=== PATIENT | male | born 1970 | race Caucasian/White ===

== ENCOUNTER 2018-08-01 12:34 | Emergency (ER) | payer SELFPAY ==
[~2018-08-01] VITALS: Ht 172.7 cm; Wt 90.7 kg
[2018-08-01] MEDS ORDERED: NKM (12:42)
[2018-08-01 12:45] VITALS: BP 114/80
[2018-08-01] MEDS ORDERED: Ketorolac 30mg Inj IV ONE (13:15)
[2018-08-01 14:00] VITALS: BP 103/65
[2018-08-01 14:10] LABS: BASOPHILS % (AUTO) 0.6 % (0.0-2.0); EOSINOPHILS % (AUTO) 1.3 % (0.0-3.0); HEMATOCRIT 46.7 % (42.0-52.0); HEMOGLOBIN 15.2 G/DL (14.2-18.0); LYMPHOCYTES % (AUTO) 18.6 % (20.0-45.0); MEAN CORPUSCULAR VOLUME 88 FL (80-99); MONOCYTES % (AUTO) 4.2 % (1.0-10.0); NEUTROPHILS % (AUTO) 75.3 % (45.0-75.0); PLATELET COUNT 365 K/UL (150-450); RED BLOOD COUNT 5.31 M/UL (4.70-6.10); WHITE BLOOD COUNT 15.9 K/UL (4.8-10.8)
--- NOTE | 2018-08-01 14:15 | Diagnostic Imaging Report ---
Indication: Abdominal pain and flank pain Technique: Supine view of the abdomen Comparison: none Findings: Unremarkable bowel gas pattern. No unusual masses or calcifications. Impression: No acute process
--- NOTE | 2018-08-01 14:15 | Diagnostic Imaging Report ---
Indication: Shortness of breath Technique: One view of the chest Comparison: none Findings: Inspiration is suboptimal. Lungs and pleural spaces are clear. Heart size is normal Impression: Negative
[2018-08-01 14:17] LABS: ANION GAP 9 mmol/L (5-15); BLOOD UREA NITROGEN 8 mg/dL (7-18); CALCIUM 9.1 MG/DL (8.5-10.1); CARBON DIOXIDE 26 MMOL/L (21-32); CHLORIDE 104 MMOL/L (98-107); POTASSIUM 3.8 MMOL/L (3.5-5.1); SODIUM 138 MMOL/L (136-145)
[2018-08-01 14:28] LABS: ALANINE AMINOTRANSFERASE 23 U/L (12-78); ALBUMIN 3.6 G/DL (3.4-5.0); ALBUMIN/GLOBULIN RATIO 0.9 (1.0-2.7); ALKALINE PHOSPHATASE 105 U/L (46-116); ASPARTATE AMINO TRANSFERASE 12 U/L (15-37); BILIRUBIN,TOTAL 0.4 MG/DL (0.2-1.0)
[2018-08-01 14:31] LABS: APPEARANCE,URINE SLIGHTLY CLOUDY; BILIRUBIN, URINE NEGATIVE (NEGATIVE); GLUCOSE, URINE (UA) NEGATIVE (NEGATIVE); KETONES,URINE 1+ (NEGATIVE); LEUKOCYTE ESTERASE ,URINE 1+ (NEGATIVE); NITRITE,URINE NEGATIVE (NEGATIVE); PH,URINE 5 (4.5-8.0); PROTEIN,URINE 2+ (NEGATIVE); UROBILINOGEN,URINE 1 MG/DL (0.0-1.0)
[2018-08-01 14:36] LABS: COLOR,URINE YELLOW
--- NOTE | 2018-08-01 15:07 | Emergency Room Report ---
History of Present Illness General Chief Complaint: Back Pain-No Injury Source: Patient Present Illness HPI Patient complains of 4 days of left flank pain. Last night it was severe and he was unable to sleep - it woke him up. It's now to 8/10. Doesn't radiate to his groin that radiates more to his lower back. He tried taking Tylenol without help. He denies any dysuria. There are no fevers or chills. He feels it's a kidney infection. He feels is something inside of his abdomen this causing pain and pressure. Somewhat worsened with changing position and twisting lower back. No trauma. EKG has pain on the right-hand side that similar. It's never been this severe. He's never had an evaluation for this. He states that several months ago he was told his renal function was abnormal. No cause was determined. No been no vomiting or diarrhea. Moving his bowels without any difficulty. No cough, dyspnea, URI sy. No rashes. No headache. No anxiety. Allergies: Coded Allergies: No Known Allergies (Unverified , 08/01/18) Patient History Past Medical History: see triage record Pertinent Family History: other - no cancer Social History: Reports: smoking; Denies: alcohol use, drug use Social History Narrative - from Reviewed Nursing Documentation: PMH: Agreed; PSxH: Agreed Nursing Documentation-[facility] Past Medical History: No Stated History Review of Systems All Other Systems: negative except mentioned in HPI Physical Exam Vital Signs Date Time Temp Pulse Resp B/P (MAP) Pulse Ox O2 Delivery O2 Flow Rate FiO2 08/01/18 12:39 97.8 76 14 134/82 98 Room Air 97.9 Sp02 EP Interpretation: reviewed, normal General Appearance: well appearing, no apparent distress, GCS 15 Head: normocephalic Eyes: bilateral eye normal inspection, bilateral eye PERRL ENT: moist mucus membranes Neck: supple Respiratory: lungs clear, normal breath sounds Cardiovascular #1: regular rate, rhythm Cardiovascular #2: 2+ radial (R) Gastrointestinal: normal bowel sounds, non tender, soft, no guarding, no rebound Genitourinary: CVA tenderness (L) Musculoskeletal: gait/station normal, normal range of motion, tender - L lower back Neurologic: alert, oriented x3, grossly normal Psychiatric: mood/affect normal Skin: normal inspection, normal color, warm/dry Medical Decision Making Diagnostic Impression: Primary Impression: Pyelonephritis Additional Impression: Renal neoplasm ER Course Patient presents with left flank pain. Differential includes muscle strain, muscle spasm, renal stone, pyelonephritis, diverticulitis amongst others. Evaluation will be with abdominal films and labs. Treatment will be with IV hydration and IV Toradol. Labs significant for white count of 15 9. Urinalysis positive for ketones and trace blood and white cells. The patient is improved however still has pain. A CT of the abdomen is ordered. CT with 3.3 cm mass L kidney - suspicion for renal cell cancer. Also calyceal inflammation. Discussed with Dr. Connor who agreed to consult in AM. Stated by size, doubts need for acute nephrectomy. Suggests consideration for f/u at [facility]. Rocephin ordered. Discussed diagnosis with patient and . Initiation of admission. Patient states does not want to stay in hospital and wants to sign out AMA. Discussed risks of leaving (uncontrolled infection, untreated tumor). Still insisting on leaving. Patient given Rx for antibiotics and analgesics with admonition for rapid follow up and to return if not doing well. Laboratory Tests Test 08/01/18 13:00 08/01/18 13:30 Urine Color Yellow Urine Appearance Slightly cloudy Urine pH 5 (4.5-8.0) Urine Specific [place] 1.020 (1.005-1.035) Urine Protein 2+ (NEGATIVE) H Urine Glucose (UA) Negative (NEGATIVE) Urine Ketones 1+ (NEGATIVE) H Urine Blood 1+ (NEGATIVE) H Urine Nitrite Negative (NEGATIVE) Urine Bilirubin Negative (NEGATIVE) Urine Urobilinogen 1 MG/DL (0.0-1.0) H Urine Leukocyte Esterase 1+ (NEGATIVE) H Urine RBC 0-2 /HPF (0 - 0) H Urine WBC 0-2 /HPF (0 - 0) Urine Squamous Epithelial Cells Few /LPF (NONE/OCC) Urine Calcium Oxalate Crystals Moderate /LPF (NONE) Urine Bacteria Few /HPF (NONE) Urine Mucus Moderate /LPF (NONE/OCC) H White Blood Count 15.9 K/UL (4.8-10.8) H Red Blood Count 5.31 M/UL (4.70-6.10) Hemoglobin 15.2 G/DL (14.2-18.0) Hematocrit 46.7 % (42.0-52.0) Mean Corpuscular Volume 88 FL (80-99) Mean Corpuscular Hemoglobin 28.7 PG (27.0-31.0) Mean Corpuscular Hemoglobin Concent 32.6 G/DL (32.0-36.0) Red Cell Distribution Width 13.0 % (11.6-14.8) Platelet Count 365 K/UL (150-450) Mean Platelet Volume 6.2 FL (6.5-10.1) L Neutrophils (%) (Auto) 75.3 % (45.0-75.0) H Lymphocytes (%) (Auto) 18.6 % (20.0-45.0) L Monocytes (%) (Auto) 4.2 % (1.0-10.0) Eosinophils (%) (Auto) 1.3 % (0.0-3.0) Basophils (%) (Auto) 0.6 % (0.0-2.0) Prothrombin Time 10.3 SEC (9.30-11.50) Prothrombin Time INR 1.0 (0.9-1.1) PTT 28 SEC (23-33) Sodium Level 138 MMOL/L (136-145) Potassium Level 3.8 MMOL/L (3.5-5.1) Chloride Level 104 MMOL/L (98-107) Carbon Dioxide Level 26 MMOL/L (21-32) Anion Gap 9 mmol/L (5-15) Blood Urea Nitrogen 8 mg/dL (7-18) Creatinine 1.0 MG/DL (0.55-1.30) Estimate Glomerular Filtration Rate > 60 mL/min (>60) Glucose Level 91 MG/DL (74-106) Calcium Level 9.1 MG/DL (8.5-10.1) Total Bilirubin 0.4 MG/DL (0.2-1.0) Aspartate Amino Transferase (AST) 12 U/L (15-37) L Alanine Aminotransferase (ALT) 23 U/L (12-78) Alkaline Phosphatase 105 U/L (46-116) Total Protein 7.5 G/DL (6.4-8.2) Albumin 3.6 G/DL (3.4-5.0) Globulin 3.9 g/dL Albumin/Globulin Ratio 0.9 (1.0-2.7) L Lipase 138 U/L (73-393) Other X-Ray Diagnostic Results Other X-Ray Diagnostic Results : X-Ray ordered: abd # of Views/Limited Vs Complete: 2 View Indication: Pain Interpretation: nonspecific bowel gas, no sbo, other - some calcifications Impression: Other Electronically Signed by: Electronically signed by Amish Cordova MD CT/MRI/US Diagnostic Results CT/MRI/US Diagnostic Results : Imaging Test Ordered: ct abd/pelvis Impression Findings: There is a 3.3 cm peripherally enhancing round solid mass extending off the posterior medial left kidney interpolar region. No evidence of renal venous invasion. No evidence of retroperitoneal lymphadenopathy. Lesion is in the vicinity of but appears to be separate from the adjacent psoas and paraspinous musculature No renal or ureteral calculi, hydronephrosis, or hydroureter on either side equivocal slight indistinctness of the left renal pelvis and peripelvic fat. Subcentimeter low-attenuation lesions are also seen in the left kidney which are too small to characterize, one coming off of the upper pole and a very tiny one in the lower pole. No focal right renal abnormality demonstrated. Lack of enteric contrast limits assessment of the GI tract. There is colonic diverticulosis. No evidence of diverticulitis. The appendix is normal. No small bowel distention. No free or loculated intraperitoneal gas or fluid is evident. The distal esophagus, stomach, duodenum are unremarkable. The liver, gallbladder, bile ducts, pancreas, spleen, adrenals are unremarkable. No retroperitoneal or mesenteric mass or adenopathy. No pelvic mass or adenopathy. Small sclerotic focus is seen in the left ischium and in the left femoral neck, both probably representing small bone islands. There is minimal rotoscoliotic deformity. The bones are otherwise unremarkable. The included lung bases are clear. Impression: 3.3 cm solid left renal mass, highly suspicious for renal cell neoplasm Equivocal slight indistinctness of the renal pelvis and peripelvic fat on the left; of doubtful significance but if real could indicate pyelitis. Correlate with clinical findings No evidence of obstructive uropathy Colonic diverticulosis. No evidence of diverticulitis Small sclerotic lesions in the left ischium and femoral neck, most likely benign bone islands Subcentimeter low-attenuation renal lesions on the left, too small to characterize but most likely representing benign simple cysts Other findings as noted, including minimal rotoscoliotic deformity Last Vital Signs Date Time Temp Pulse Resp B/P (MAP) Pulse Ox O2 Delivery O2 Flow Rate FiO2 08/01/18 17:10 97.8 71 22 136/92 100 Room Air 208.0 Status: improved Disposition: AGAINST MEDICAL ADVICE Condition: Serious Scripts Ibuprofen* (MOTRIN*) 600 Mg Tablet 600 MG ORAL Q6H PRN for For Pain, #20 TAB Prov: Amish Cordova M.D. 08/01/18 Cephalexin* (KEFLEX*) 500 Mg Capsule 500 MG ORAL EVERY 6 HOURS, #40 CAP Prov: Amish Cordova M.D. 08/01/18 Referrals: NOT CHOSEN MARIO/,REFERRING (PCP) Amish Cordova M.D. Aug 01, 2018 15:07
[2018-08-01] MEDS ORDERED: Isovue-300 100ml vial INJ PRN (15:15)
[2018-08-01 15:30] VITALS: BP 103/65
[2018-08-01] MEDS ORDERED: cefTRIAXone 1 GM in NS 55 ML IVPB ONE (16:00)
--- NOTE | 2018-08-01 16:01 | Diagnostic Imaging Report ---
Clinical Indication: Left flank pain for 4 days, 8 out of 10 in severity Technique: No oral contrast utilized, per emergency room physician request IV administration nonionic contrast. Venous phase spiral acquisition obtained through the abdomen and pelvis. Multiplanar reconstructions were generated. Total dose length product 924.77 mGycm. CTDIvol(s) 18.16 mGy. Dose reduction achieved using automated exposure control Comparison: none Findings: There is a 3.3 cm peripherally enhancing round solid mass extending off the posterior medial left kidney interpolar region. No evidence of renal venous invasion. No evidence of retroperitoneal lymphadenopathy. Lesion is in the vicinity of but appears to be separate from the adjacent psoas and paraspinous musculature No renal or ureteral calculi, hydronephrosis, or hydroureter on either side equivocal slight indistinctness of the left renal pelvis and peripelvic fat. Subcentimeter low-attenuation lesions are also seen in the left kidney which are too small to characterize, one coming off of the upper pole and a very tiny one in the lower pole. No focal right renal abnormality demonstrated. Lack of enteric contrast limits assessment of the GI tract. There is colonic diverticulosis. No evidence of diverticulitis. The appendix is normal. No small bowel distention. No free or loculated intraperitoneal gas or fluid is evident. The distal esophagus, stomach, duodenum are unremarkable. The liver, gallbladder, bile ducts, pancreas, spleen, adrenals are unremarkable. No retroperitoneal or mesenteric mass or adenopathy. No pelvic mass or adenopathy. Small sclerotic focus is seen in the left ischium and in the left femoral neck, both probably representing small bone islands. There is minimal rotoscoliotic deformity. The bones are otherwise unremarkable. The included lung bases are clear. Impression: 3.3 cm solid left renal mass, highly suspicious for renal cell neoplasm Equivocal slight indistinctness of the renal pelvis and peripelvic fat on the left; of doubtful significance but if real could indicate pyelitis. Correlate with clinical findings No evidence of obstructive uropathy Colonic diverticulosis. No evidence of diverticulitis Small sclerotic lesions in the left ischium and femoral neck, most likely benign bone islands Subcentimeter low-attenuation renal lesions on the left, too small to characterize but most likely representing benign simple cysts Other findings as noted, including minimal rotoscoliotic deformity Findings discussed by phone with Dr. Tasha in the emergency room at the time of interpretation The CT scanner at [facility] is accredited by the [employer] and the scans are performed using protocols designed to limit radiation exposure to as low as reasonably achievable to attain images of sufficient resolution adequate for diagnostic evaluation.
[2018-08-01 16:40] VITALS: BP 136/92
[2018-08-01] MEDS ORDERED: CEPHALEXIN500 MG ORAL (16:50)
[2018-08-01] MEDS ORDERED: IBUPROFEN600 MG ORAL (16:50)
[2018-08-01 17:10] VITALS: BP 136/92
== END 2018-08-01 17:10 | disposition left against medical advice (07) ==
LOC: EMR 14:42
DX: N12 Tubulo-interstitial nephritis, not specified as acute or chronic (principal); D49.512 Neoplasm of unspecified behavior of left kidney
CPT/HCPCS: 36415; 71045; 74018; 74177; 80053; 81003; 83690; 85025; 85610; 85730; 99284; J0696; J1885; J2405; Q9967